=== PATIENT | female | born 1985 | race Caucasian/White ===

== ENCOUNTER 2016-03-21 18:57 | Emergency (ER) | payer OTHER ==
[2016-03-21] MEDS ORDERED: LACTATED RINGERS 1,000 ML ONE (21:09)
[2016-03-21] MEDS ORDERED: ONDANSETRON 4 MG/2ML 2 ML VIAL ONE (21:09)
[2016-03-21 21:36] LABS: ALB/GLOB RATIO 1.1 (>1.0); ALBUMIN 3.3 gm/dL (3.5-5.7); CALCIUM 8.8 mg/dL (8.6-10.3)
[2016-03-21 21:43] LABS: ABSOLUTE NEUTROPHIL COUNT 7.2 K/mm3 (1.8-7.7); BASO % 0.3 % (0.2-1.0); EOS # 0.1 (0.0-0.5); EOS % 0.9 % (0.9-2.9); HEMATOCRIT 31.9 % (37.0-47.0); HEMOGLOBIN 10.6 gm/l (12.0-16.0); IMM NEUT # 0.1 K/mm3 (0-0.2); IMM NEUT% 0.5 % (0-1); LYMPH # 1.4 (1.0-4.8); LYMPH % 15.4 % (15-45); MEAN CELL VOLUME 89.9 fl (81.0-99.0); MEAN CORPUSCULAR HEMOGLOBIN 29.9 pg (27.0-31.0); MEAN CORPUSCULAR HGB CONC 33.2 g/dl (33.0-37.0); MEAN PLATELET VOLUME 10.6 fl (7.4-10.4); MONO # 0.4 (0.0-0.8); MONO % 4.4 % (4-12); NEUT % 78.5 % (43-75); PLATELET COUNT 181 K/mm3 (130-400); RED CELL DISTRIBUTION WIDTH 13.8 % (11.5-14.5)
[2016-03-21 22:01] LABS: SPECIFIC GRAVITY 1.025 (1.001-1.030); URINE BILIRUBIN NEGATIVE (NEGATIVE); URINE BLOOD NEGATIVE (NEGATIVE); URINE GLUCOSE (UA) NEGATIVE (NEGATIVE); URINE LEUKOCYTE ESTERASE NEGATIVE (NEGATIVE); URINE NITRITE NEGATIVE (NEGATIVE); URINE PROTEIN TRACE (NEGATIVE); URINE UROBILINOGEN 1 mg/dL (0-1 mg/dl)
[2016-03-21 22:17] LABS: URINE APPEARANCE CLEAR; URINE COLOR YELLOW
== END 2016-03-21 22:54 | disposition home or self-care (01) ==
LOC: ED 18:57
DX: O98.512 Other viral diseases complicating pregnancy, second trimester (principal); R11.2 Nausea with vomiting, unspecified; R19.7 Diarrhea, unspecified; J06.9 Acute upper respiratory infection, unspecified
CPT/HCPCS: 85025; 80053; 81003; 87804; 99283 ×2; 96374; 96361; J2405; J7120

== ENCOUNTER 2016-06-13 15:39 | Outpatient (CLI) | payer OTHER ==
[2016-06-13 16:03] VITALS: BMI 44.1
== END 2016-06-13 20:00 | disposition home or self-care (01) ==
LOC: FBCOUT 15:39 → FBC 15:40 → FBCOUT 20:00
PROVIDERS: ATTEND Advanced Practice Midwife
DX: O26.899 Other specified pregnancy related conditions, unspecified trimester (principal); W19.XXXA Unspecified fall, initial encounter; Z3A.00 Weeks of gestation of pregnancy not specified

== ENCOUNTER 2016-06-21 20:34 | Outpatient (CLI) | payer OTHER ==
[2016-06-21 20:53] VITALS: BMI 42.5
[2016-06-21] MEDS ORDERED: HYDROXYZINE PAMOATE 50 MG CAPSULE PO ONE (21:25)
== END 2016-06-21 22:10 | disposition home or self-care (01) ==
LOC: FBC 20:34 → FBCOUT 20:34
PROVIDERS: ATTEND Advanced Practice Midwife
DX: O62.9 Abnormality of forces of labor, unspecified (principal); Z3A.37 37 weeks gestation of pregnancy
CPT/HCPCS: 59025; A9270; G0463

== ENCOUNTER 2016-07-04 18:37 | Outpatient (CLI) | payer OTHER ==
[2016-07-04 18:51] VITALS: BMI 44.4
[2016-07-04] MEDS: ONDANSETRON 4 MG ODT TAB PO ONE (19:05)
== END 2016-07-04 19:15 | disposition home or self-care (01) ==
LOC: FBCOUT 18:37 → FBC 18:38 → FBCOUT 19:15
PROVIDERS: ATTEND Advanced Practice Midwife
DX: O26.899 Other specified pregnancy related conditions, unspecified trimester (principal); Z3A.00 Weeks of gestation of pregnancy not specified; Z87.898 Personal history of other specified conditions

== ENCOUNTER 2016-07-08 18:13 | Inpatient (IN) | payer OTHER ==
[2016-07-08] MEDS ORDERED: LACTATED RINGERS 1,000 ML IV PRN (18:44)
[2016-07-08] MEDS ORDERED: OXYTOCIN IN NS 334 ML IV PRN (18:44)
[2016-07-08] MEDS ORDERED: LACTATED RINGERS 1,000 ML IV SCH ×3 (18:45→21:30)
[2016-07-08] MEDS ORDERED: OXYTOCIN 10 UNITS/ML VIAL ONE (19:24)
[2016-07-08] MEDS ORDERED: OXYTOCIN IN NS 500 ML IV ONE (19:24)
[2016-07-08] MEDS ORDERED: LIDOCAINE Viscous 2% 15 ML UDCUP ONE (19:24)
[2016-07-08] MEDS ORDERED: LIDOCAINE 1% (PRES FREE) 30 ML VIAL ONE (19:24)
[2016-07-08] MEDS ORDERED: MINERAL OIL 25 ML BOT ONE (19:24)
[2016-07-08 20:25] VITALS: BMI 43.2
[2016-07-08] MEDS ORDERED: PENICILLIN G POTASSIUM 5 MMU in NS 0.9% (MINI-BAG PLUS) 100 ML IV ONE ×3 (20:30→23:15)
[2016-07-08] MEDS ORDERED: BUSPIRONE HCL 10 MG TABLET PO PRN ×2 (20:35→21:03)
[2016-07-08] MEDS ORDERED: OXYTOCIN IN NS 500 ML IV PRN ×2 (21:18→21:30)
[2016-07-08] MEDS ORDERED: LOPERAMIDE HCL 2 MG CAPSULE PO PRN (21:30)
[2016-07-08] MEDS ORDERED: ONDANSETRON 4 MG/2ML 2 ML VIAL IV PRN (21:30)
[2016-07-08 21:56] LABS: HEMATOCRIT 35.7 % (37.0-47.0); HEMOGLOBIN 12.3 gm/l (12.0-16.0); MEAN CELL VOLUME 87.9 fl (81.0-99.0); MEAN CORPUSCULAR HEMOGLOBIN 30.3 pg (27.0-31.0); MEAN CORPUSCULAR HGB CONC 34.5 g/dl (33.0-37.0); RED CELL DISTRIBUTION WIDTH 13.8 % (11.5-14.5)
[2016-07-08 22:09] LABS: AMPHETAMINES/METHAMPHETAMINES NEGATIVE (NEGATIVE); COCAINE NEGATIVE (NEGATIVE); MARIJUANA NEGATIVE (NEGATIVE); METHADONE NEGATIVE (NEGATIVE); OPIATES NEGATIVE (NEGATIVE); TRICYCLIC ANTIDEPRESSANTS NEGATIVE (NEGATIVE)
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
[2016-07-08] MEDS ORDERED: PENICILLIN G POTASSIUM 5 MMU VIAL ONE (23:42)
[2016-07-08] MEDS: LACTATED RINGERS 1,000 ML IV SCH (23:59)
[2016-07-09] MEDS ORDERED: FENTANYL/ROPIVACAINE EPIDURAL 250 ML EP ONE (00:26)
[2016-07-09] MEDS ORDERED: PENICILLIN G 3 MIL UNIT PREMIX 3 MMU in Premix (D5W) 50 ml 1 EACH IV SCH (00:30)
[2016-07-09] MEDS: LACTATED RINGERS 1,000 ML IV SCH ×6 (00:48→23:42)
[2016-07-09] MEDS: LOPERAMIDE HCL 2 MG CAPSULE PO PRN ×2 (01:18→04:10)
[2016-07-09] MEDS ORDERED: EPIDURAL PROCEDURE TRAY ONE (01:25)
[2016-07-09] MEDS ORDERED: ROPIVACAINE 0.5% 30 ML VIAL ONE (01:25)
[2016-07-09] MEDS ORDERED: METOCLOPRAMIDE HCL 5 MG/ML 2ML VIAL IV PRN (01:26)
[2016-07-09] MEDS ORDERED: LACTATED RINGERS 500 ML IV PRN (01:26)
[2016-07-09] MEDS ORDERED: EPHEDRINE SULFATE 50 MG/ML 1ML VIAL IV PRN (01:26)
[2016-07-09] MEDS ORDERED: NALBUPHINE HCL 20 MG/ML AMP IV PRN (01:26)
[2016-07-09] MEDS ORDERED: ONDANSETRON 4 MG/2ML 2 ML VIAL IV PRN (01:26)
[2016-07-09] MEDS ORDERED: DIPHENHYDRAMINE HCL 50 MG/1 ML VIAL IV PRN (01:26)
[2016-07-09] MEDS ORDERED: SODIUM CHLORIDE 0.9% 500 ML IV PRN (01:26)
[2016-07-09] MEDS ORDERED: NALOXONE HCL 0.4 MG/ML VIAL IV PRN (01:26)
[2016-07-09] MEDS: FENTANYL/ROPIVACAINE EPIDURAL 250 ML EP SCH ×2 (01:30→09:04)
[2016-07-09] MEDS ORDERED: PENICILLIN G 3 MIL UNIT PREMIX 50 ML IV ONE ×2 (03:46→07:26)
[2016-07-09] MEDS: PENICILLIN G 3 MIL UNIT PREMIX 3 MMU in Premix (D5W) 50 ml 1 EACH IV SCH ×2 (03:58→08:00)
[2016-07-09] MEDS ORDERED: LEVOTHYROXINE SODIUM 25 MCG TABLET PO SCH (07:30)
[2016-07-09] MEDS ORDERED: LEVOTHYROXINE SODIUM 150 MCG TABLET PO SCH (07:30)
[2016-07-09] MEDS: SERTRALINE HCL 50 MG TABLET PO SCH ×2 (07:41→14:22)
[2016-07-09] MEDS: LEVOTHYROXINE SODIUM 125 MCG TABLET PO SCH (07:45)
[2016-07-09] MEDS: LEVOTHYROXINE SODIUM 200 MCG TABLET PO SCH (07:45)
[2016-07-09] MEDS ORDERED: ACETAMINOPHEN 325 MG TABLET PO PRN ×2 (09:20→13:53)
[2016-07-09] MEDS ORDERED: OXYTOCIN IN NS 167 ML IV PRN (09:20)
[2016-07-09] MEDS ORDERED: LACTATED RINGERS 1,000 ML IV PRN (09:20)
[2016-07-09] MEDS ORDERED: BENZOCAINE/MENTHOL 60 APPLIC/BOT TP PRN ×2 (09:20→13:53)
[2016-07-09] MEDS ORDERED: LANOLIN 50 APPLIC/7G TUBE TP PRN ×2 (09:20→13:53)
[2016-07-09] MEDS ORDERED: CALCIUM CARBONATE 500 MG TAB.CHEW PO PRN (09:20)
[2016-07-09] MEDS ORDERED: KETOROLAC TROMETHAMINE 30 MG/ML 1 ML VIAL IV PRN (09:20)
--- NOTE | 2016-07-09 10:09 | PCMDEL ---
Delivery Note - Labor 1st stage (hr/min):: 7h30m 2nd stage (hr/min):: 11m 3rd stage (hr/min):: 5m Total (hr/min):: 7h46m Pushed (hr/min):: 11m - Delivery Delivery (Date): 07/09/16 Delivery (Time): 08:41 Gender: Female Presentation: Cephalic Position: OA Umbilical Cord: 3 Vessel, Nuchal Cord Delayed Cord Clamping:: < 1-2 min 1 Minute Total: 7 5 Minute Total: 8 Placenta:: Intact, shultze EBL:: 300 Perineum:: Superficial split at perineum, not repaired Anesthesia/Meds:: Epidural Length ROM:: 11m Comments:: 1st stage summary: Pt requested an early epidural at 3cm, which provided adequate pain relief. She then labored comfortably with pitocin until she began to feel rectal pressure. Exam at that time revealed an anterior lip. AROM was performed for clear fluid. FHTs Category 1-2 throughout. Of note, pt had 2 minor panic attacks. The first was during her IV placement, which she used her home Rx of buspar to treat. The second was during the epidural placement and required additional lidocaine anesthetic. She also had diarrhea throughout her labor that was not remedied by multiple doses of imodium. Pt received adequate GBS prophylaxis. 2nd stage summary: Pt pushed well in semi-fowlers to achieve an of a viable female , Apgars 7/8. Tight shoulders were noted, but no shoulder dystocia was diagnosed. A nuchal cord was also noted and baby was somersaulted through this upon delivery of the body. Infant was placed on maternal abdomen for drying and stimulation, where she was noted to have poor cry. The cord was clamped and cut at approx 2 min and baby was moved to warmer for further stimulation and evaluation. Baby was returned to mom in <5 min, no additional interventions other than Sp02 monitoring were required. Active management of the third stage was initiated with IV pitocin. 3rd stage summary: Placenta delivered with maternal effort Shulze and intact. Fundus was firm and deep at 1FB below the umbilicus. A skin split was noted at the perineum, but it was not bleeding and was hemostatic, so no repair was performed. GME=[id number]. Mom and baby [id number] and bonding well. Notes: Patient plans a tubal ligation. Plan made with HVAC/R SERVICE TECHNICIAN to keep epidural catheter in place for BTL due to painful epidural placement during labor. Patient has a pain management plan with her drug treatment team for post-op pain management, need to inquire further about this with pt. [id number] handoff given to on-call CNM.
[2016-07-09 10:47] LABS: HEMATOCRIT 31.3 % (37.0-47.0); HEMOGLOBIN 10.6 gm/l (12.0-16.0)
[2016-07-09] MEDS ORDERED: BUPIVACAINE 0.25% (PRES FREE) 30 ML VIAL ONE (11:41)
[2016-07-09] MEDS ORDERED: LIDOCAINE 2%/EPI (PRES FREE) 20 ML VIAL ONE (11:41)
[2016-07-09] MEDS ORDERED: MIDAZOLAM HCL 1 MG/ML 2ML VIAL ONE ×2 (12:06→12:21)
[2016-07-09] MEDS ORDERED: FENTANYL 100 MCG/2 ML VIAL ONE ×2 (12:06→12:25)
[2016-07-09] MEDS ORDERED: LIDOCAINE 2% (PRES FREE) 5 ML VIAL ONE (12:23)
[2016-07-09] MEDS ORDERED: PROPOFOL 20 ML IV ONE (12:35)
--- NOTE | 2016-07-09 12:54 | PCMBTL ---
Brief Post Op Note: Date of Procedure: 07/09/16 Start Time: [] Preoperative Diagnosis: 1. [desires permanent sterilization] Postoperative Diagnosis: 1. [Same] Procedure: bilateral tubal ligation] Surgeon: Malini Robertson DO Assist:[] Anesthesia: [failed epidural, local, MAC] Findings: [normal uterus, normal fallopian tubes] Condition: [stable] Complications: [none] IV Fluids: [250] mLs of LR [] Urine Output: [150] mLs Estimated Blood Loss: [5] mLs Specimens: [N/A] Drains: [N/A] #[id number]
[2016-07-09] MEDS ORDERED: DOCUSATE SODIUM 100 MG CAPSULE PO PRN (13:53)
[2016-07-09] MEDS ORDERED: RHOGAM 300 MCG SYRINGE IV ONE (14:28)
--- NOTE | 2016-07-09 15:10 | OP ---
MAIRE SOSA : 1985 DATE OF OPERATION: July 09, 2016 PREOPERATIVE DIAGNOSIS: Multiparity, desires permanent sterilization. POSTOPERATIVE DIAGNOSIS: Multiparity, desires permanent sterilization. OPERATION PERFORMED: TUBAL LIGATION. SURGEON: Chantel Robertson D.O. ANESTHESIA: Failed epidural, MAC and local. FINDINGS: Normal uterus, normal fallopian tubes. CONDITION: Stable. COMPLICATIONS: None. IV FLUIDS: 250 mL of lactated Ringer's. URINE OUTPUT: 150 mL. ESTIMATED BLOOD LOSS: 5 mL. SPECIMENS: Portions of bilateral fallopian tubes. PROCEDURE: The patient was taken back to the operating room with IV fluids running. Her epidural was left in place and was attempted to be bolused. When the patient was placed on the operating table and prepped and draped in a dorsal supine position in a normal sterile fashion and anesthesia was tested, the patient was found to still be able to feel what was happening at the operative field. So the patient was placed under conscious sedation. When the patient was comfortable, the surgical field was tested again and anesthesia was then found to be adequate. Approximately 5 mL of local epinephrine was placed at the operative site and an approximately 4 cm incision was made infraumbilically. The incision was carried down to the fascia. The fascia was grasped with a Jose Enrique clamp and elevated. It was entered sharply using Rivera scissors. An Charlie retractor was placed in the abdominal cavity. The patient's left fallopian tube was easily visualized. It was grasped, followed out to its fimbriated end, and the isthmic portion of the fallopian tube was grasped and suture ligated times two. Metzenbaum scissors were used to cut out the isthmic portion of the fallopian tube and it was removed from the operative field. The cut ends of the fallopian tube were cauterized with Bovie cautery device and when hemostasis was achieved, the tube was returned to the abdominal cavity. The patient's right fallopian tube was then identified, followed out to its fimbriated end with two [place] clamps. The isthmic portion of the fallopian tube was grasped and elevated. It was suture ligated times two. The isthmic portion was cut off with Metzenbaum scissors. The cut ends of the fallopian tube were cauterized with Bovie electrocautery. When the tube was hemostatic, it was returned to the abdominal cavity. The abdominal fascia was then grasped with a Jose Enrique clamp and a [id number] suture was placed through the abdominal fascia to close it. The skin was closed with #4-0 Vicryl. The procedure was then determined to be complete. The patient was easily roused from anesthesia and transferred to recovery in stable condition.
[2016-07-09] MEDS: OXYCODONE/ACETAMINOPHEN 5/325 MG TABLET PO PRN ×2 (15:32→20:43)
[2016-07-09] MEDS: IBUPROFEN 800 MG TABLET PO PRN (21:04)
[2016-07-10] MEDS: OXYCODONE/ACETAMINOPHEN 5/325 MG TABLET PO PRN ×5 (02:15→21:55)
[2016-07-10] MEDS: IBUPROFEN 800 MG TABLET PO PRN ×3 (06:12→18:07)
[2016-07-10 06:50] LABS: HEMATOCRIT 29.6 % (37.0-47.0); HEMOGLOBIN 9.9 gm/l (12.0-16.0)
[2016-07-10] MEDS: SERTRALINE HCL 50 MG TABLET PO SCH (09:17)
[2016-07-10] MEDS: LEVOTHYROXINE SODIUM 200 MCG TABLET PO SCH (09:17)
[2016-07-10] MEDS: LEVOTHYROXINE SODIUM 125 MCG TABLET PO SCH (09:25)
[2016-07-10] MEDS: FENTANYL/ROPIVACAINE EPIDURAL 250 ML EP SCH (11:24)
--- NOTE | 2016-07-10 16:34 | PDOC44 ---
- Subjective Day: 1 Reports Pain Tolerable, Reports Other (bottlefeeding due to nipple studs.) - Objective Temp Pulse Resp BP Pulse Ox 98.0 F 57 16 102/51 07/10/16 13:39 07/10/16 13:39 07/10/16 13:39 07/10/16 13:39 Lab Results 07/10/16 06:25 Hgb 9.9 L Hct 29.6 L Current Medications Generic Name Dose Route Start Last Admin Trade Name Freq PRN Reason Stop Dose Admin Acetaminophen 325 - 650 mg 07/09/16 13:53 Tylenol PO Q4H PRN Pain (Mild) Benzocaine/Menthol 1 applic 07/09/16 09:20 Dermoplast TP PRN PRN Patient Comfort Buspirone HCl 10 - 20 mg 07/08/16 21:03 07/08/16 21:34 Buspar PO 10 mg TID PRN Administration Anxiety Calcium Carbonate/Glycine 500 - 1,000 mg 07/09/16 09:20 Tums PO BID PRN Indigestion Diphenhydramine HCl 25 - 50 mg 07/09/16 01:26 Benadryl IV Q4H PRN Itching Docusate Sodium 100 mg 07/09/16 09:20 Colace PO DAILY PRN Comfort Emollient Ointment 1 applic 07/09/16 09:20 Thz-S-Bxneup TP PRN PRN sore nipples Ropivacaine/Fentanyl/NS 250 mls @ 0 mls/hr 07/09/16 06:00 07/10/16 11:24 Fentanyl 2 Mcg/Ml + Ropivacaine 0.125% Ep Bag EP Not Given EPI JEFF Protocol Per Protocol Lactated Ringer's 1,000 mls @ 125 mls/hr 07/09/16 09:20 07/09/16 09:56 Lactated Ringers IV 125 mls/hr .Q8H PRN Administration Titrate per clinical situation Ibuprofen 800 mg 07/09/16 13:53 07/10/16 12:05 Motrin PO 800 mg Q6H PRN Administration Pain (Mild) Ketorolac Tromethamine 30 mg 07/09/16 09:20 07/09/16 14:46 Toradol IV 30 mg Q6H PRN Administration Pain Levothyroxine Sodium 200 mcg 07/09/16 07:30 07/10/16 09:17 Levothroid PO 200 mcg DAILY@0730 JEFF Administration Levothyroxine Sodium 125 mcg 07/09/16 07:31 07/10/16 09:25 Levothroid PO 125 mcg DAILY@0730 JEFF Administration Loperamide HCl 2 mg 07/09/16 00:24 07/09/16 04:10 Imodium PO 2 mg Q4H PRN Administration Diarrhea Metoclopramide HCl 10 mg 07/09/16 01:26 Reglan IV Q6H PRN Ondansetron HCl 4 mg 07/09/16 01:26 07/09/16 07:39 Zofran IV 4 mg Q6H PRN Administration Nausea Oxycodone/Acetaminophen 1 - 2 tab 07/09/16 13:53 07/10/16 12:05 Percocet 5/325 PO 2 tab Q4H PRN Administration Pain (Moderate) Sertraline HCl 150 mg 07/09/16 09:00 07/10/16 09:17 Zoloft PO 150 mg DAILY JEFF Administration Sodium Chloride 10 ml 07/09/16 01:00 07/10/16 11:26 Normal Saline 10ml Flush IV Not Given Q8HR JEFF Sodium Chloride 10 ml 07/08/16 22:32 Normal Saline 10ml Flush IV PRN PRN IV Flush - Physical Exam General: Afebrile Psych/Mental Status: Mood/Affect Appropriate, Bonding Well Breast: Soft Fundus: Firm, Midline, At Umbilicus Genitourinary: Normal Female Genitalia Lochia: Moderate Wound NECKTIE STITCHER: Dressing in Place, Dressing Clean/Dry/Intact - Problems:Assessment/Plan (1) care following vaginal delivery Status: Acute Disposition: Anticipate DC Home Tomorrow
[2016-07-10] MEDS: DOCUSATE SODIUM 100 MG CAPSULE PO PRN (18:07)
[2016-07-11] MEDS: IBUPROFEN 800 MG TABLET PO PRN ×2 (01:26→07:20)
[2016-07-11] MEDS: OXYCODONE/ACETAMINOPHEN 5/325 MG TABLET PO PRN ×3 (02:48→12:52)
[2016-07-11] MEDS: LEVOTHYROXINE SODIUM 200 MCG TABLET PO SCH (07:20)
[2016-07-11] MEDS: LEVOTHYROXINE SODIUM 125 MCG TABLET PO SCH (07:20)
--- NOTE | 2016-07-11 08:08 | PDOC39B ---
<Alona Ricketts - Last Filed: 07/11/16 08:04> Hospital Course: ADMIT DATE: 07/08/16 DISCHARGE DATE: 07/11/2016 ADMISSION DIAGNOSES: PTSD/depression/anxiety, Hashimotos hypothryoidism, inguinal hernia, mild anemia PROCEDURES: induction, AROM, epidural, bilateral tubal ligation HISTORY OF PRESENT ILLNESS: 30 year old G5 T2 L2 at 40 weeks 1 days presenting with progressing pain from inguinal hernia - was taking narcotics and desired induction to help with the pain and reduce the amount of time she was taking a narcotic. HOSPITAL COURSE: The patient doing well. By day of discharge the patient is ambulating, eating, voiding, and passing flatus without difficulty. Pain is controlled and lochia is appropriate. She is bottle feeding - this has been the plan because of her polypharmacy. Patient has strong community support and resources available to her for continued management of her mental health, hypothyroidism, and inguinal hernia. Complains of left groin and thigh pain - no swelling or redness. - Physical Exam Vital Signs: Temp Pulse Resp BP Pulse Ox 98.6 F 70 20 112/68 07/11/16 01:29 07/11/16 01:29 07/11/16 01:29 07/11/16 01:29 General: Afebrile Psych/Mental Status: Mood/Affect Appropriate, Judgment/Insight Intact, Bonding Well Neurological: Grossly Intact, Alert, Oriented x 4, Other (Left groin without edema or redness, no calf tenderness, pain upon palpation of the groin, muscle feels tight) HEENT: Atraumatic Breast: Soft, Skin intact, Nipples Intact Fundus: Firm Genitourinary: Normal Female Genitalia Lochia: Light - Discharge Diagnosis (1) (normal spontaneous vaginal delivery) Status: AcuteAssessment/Plan: A: with 1st degree perineal laceration, unrepaired Post operative of bilateral tubal ligation, uncomplicated Groin pain likely of musculoskeletal origin P: D/C in good condition. Discussed general care as well as post operative care. Recommended ice, heat, stretching, and ibuprofen for groin pain. Call if worse - can make PT referral. - Discharge Plan Condition: Stable Disposition: Home Additional Instructions: Midwifery 'After the ' handout given to patient. Prescriptions: Oxycodone HCl/Acetaminophen [PERCOCET 5/325 MG TABLET (SHF)] 1 tab PO Q4-6H PRN #12 PRN Reason: Pain (Moderate) <Juan Antonio-Elisabeth Herrmann - Last Filed: 07/11/16 08:08> Hospital Course: ADMIT DATE: 07/08/16 DISCHARGE DATE: [] ADMISSION DIAGNOSES: [] PROCEDURES: [] HISTORY OF PRESENT ILLNESS: 30 year old G5 T2 L2 at 40 weeks 1 days presenting with [] HOSPITAL COURSE: The patient [] By day of discharge the patient is ambulating, eating, voiding, and passing flatus without difficulty. Pain is controlled and lochia is appropriate. She is [] - Physical Exam Vital Signs: Temp Pulse Resp BP Pulse Ox 98.6 F 70 20 112/68 07/11/16 01:29 07/11/16 01:29 07/11/16 01:29 07/11/16 01:29 - Discharge Diagnosis (1) care following vaginal delivery Status: Acute
[2016-07-11] MEDS: SERTRALINE HCL 50 MG TABLET PO SCH (08:29)
[2016-07-11 09:43] VITALS: BP 104/60
[2016-07-11] MEDS: DOCUSATE SODIUM 100 MG CAPSULE PO PRN (09:47)
--- NOTE | 2016-07-11 13:02 | SURGPATH ---
[facility] [address] [place] [id number] Patient Name: MARIE SOSA MR#: [id number] : 1985 Gender: F Specimen #: [id number] Collected: 07/09/2016 Received: 07/10/2016 Reported: 07/11/2016 Submitting Phys: ILEANA SUAZO Copy To Phys: [facility] ENZO WATTS MARGARET M Clinical History / Pre-Operative Diagnosis: NONE PROVIDED Specimen Source / Surgical Procedure Performed: SEGMENT OF RIGHT FALLOPIAN TUBE WITH SUTURE, SEGMENT OF LEFT FALLOPIAN TUBE Interpretation: RIGHT AND LEFT FALLOPIAN TUBE SEGMENTS: - FULL CROSS SECTIONS OF BILATERAL FALLOPIAN TUBE SEGMENTS. Electronically Signed Out May Sparks M.D. Gross Description: The specimen is received in a formalin filled container labeled with the patient's name and "fallopian tubes". Two cylindrical segments of borges tissue are each 2.0 x 0.5 cm. One segment has an attached suture and is inked black. A sales representative cash registers cross section of each is submitted in one cassette. Chris Falcon Microscopic Description: A section shows full cross sections of fallopian tube segments, one of which is inked. No significant pathologic changes are identified. 1: [id number](9) Z30.2
== END 2016-07-11 13:51 | disposition home or self-care (01) | DRG 767 ==
LOC: EDSTATUS 18:13 → FBC 19:02
PROVIDERS: ADMIT Registered Nurse; ATTEND Registered Nurse
PROC: 0UL70ZZ Occlusion of Bilateral Fallopian Tubes, Open Approach (ICD-10-PCS; 2016-07-08)
PROC: 10E0XZZ Delivery of Products of Conception, External Approach (ICD-10-PCS; principal; 2016-07-09)
DX: O99.344 Other mental disorders complicating childbirth (principal); F32.9 Major depressive disorder, single episode, unspecified; F41.9 Anxiety disorder, unspecified; O99.334 Smoking (tobacco) complicating childbirth; F17.210 Nicotine dependence, cigarettes, uncomplicated; O99.284 Endocrine, nutritional and metabolic diseases complicating childbirth; E06.3 Autoimmune thyroiditis; O99.824 Streptococcus B carrier state complicating childbirth; O99.02 Anemia complicating childbirth; D64.9 Anemia, unspecified; O99.214 Obesity complicating childbirth; E66.9 Obesity, unspecified; O69.81X0 Labor and delivery complicated by cord around neck, without compression, not applicable or unspecified; Z3A.40 40 weeks gestation of pregnancy; Z37.0 Single live birth